=== PATIENT | male | born 1990 | race African-American/Black ===

== ENCOUNTER 2021-07-15 20:34 | Emergency (ER) | payer MEDICAID ==
[~2021-07-15] VITALS: Ht 185.4 cm; Wt 71.0 kg
[2021-07-15 20:42] VITALS: BP 116/68
[2021-07-16] MEDS ORDERED: FLUORESCEIN SODIUM 1MG/STRIP LEFTEYE ONE
[2021-07-16] MEDS ORDERED: GENTAMICIN 0.3% OPHTH DROPS 5ML LEFTEYE ONE
[2021-07-16] MEDS ORDERED: TETRACAINE 0.5% OPHTH DROPS 4ML LEFTEYE ONE
== END 2021-07-16 01:19 | disposition left against medical advice (07) ==
LOC: ER 20:34
DX: H57.12 Ocular pain, left eye (principal); Z88.0 Allergy status to penicillin; Z91.018 Allergy to other foods; Z91.013 Allergy to seafood
CPT/HCPCS: 99281